=== PATIENT | female | born 1960 | race Caucasian/White ===

== ENCOUNTER 2017-12-01 23:05 | Emergency (ER) | payer SELFPAY | END 2017-12-01 23:43 | disposition left against medical advice (07) | LOC: ER 23:05 | DX: E11.9 Type 2 diabetes mellitus without complications (principal); Z53.21 Procedure and treatment not carried out due to patient leaving prior to being seen by health care provider; Z59.0 Homelessness | CPT/HCPCS: 82948-90 ==